=== PATIENT | male | born 1995 ===

== ENCOUNTER 2018-01-07 18:43 | Emergency (ER) | payer OTHER ==
--- NOTE | 2018-01-07 18:51 | ER Report ---
History and Physical Time Seen By MD: 18:50 HPI/ROS CHIEF COMPLAINT: Bilateral heel pain HISTORY OF PRESENT ILLNESS: 22-year-old male patient presents to emergency room with complaint of bilateral heel pain. Patient states that he spends most of yesterday drinking. He states that he got a bar and had a couple of beers. About 11 to 11:30 last night he was getting down of his [employer] roof. His body was climbing down using a trash can, however the patient felt that he would be able to jump without any difficulties, stating that was only 10-15 feet up. He squatted down and jumped off landing on both feet. He states that he did have pain at that time. He states it is significantly worse this morning. Is not been able to put weight on his left foot at all. He's been able to put some weight on the front of the right foot. He denies having numbness tingling. States he does have pain with moving his toes. Patient has been using crutches throughout the day. He denies any numbness tingling to the toes. REVIEW OF SYSTEMS: Respiratory: No cough, no dyspnea. Cardiovascular: No chest pain, no palpitations. Gastrointestinal: No vomiting, no abdominal pain. Musculoskeletal: As noted above Allergies: Coded Allergies: No Known Drug Allergies (Unverified , 01/07/18) Home Meds Active Scripts Hydrocodone Bit/Acetaminophen (HYDROCODON-ACETAMINOPHEN 5-325) 1 Each Tablet, 1 EACH PO Q4-6H Y for PAIN, #12 TAB Prov:ELLEN BARRON 01/07/18 Past Medical/Surgical History Patient denies any pertinent medical history. Patient has surgical history to both his upper and lower jaw. Reviewed Nurses Notes: Yes Constitutional Vital Sign - Last 24 Hours 01/07/18 01/07/18 01/07/18 01/07/18 18:49 18:58 19:13 19:28 Temp 99.7 Pulse 100 93 94 86 Resp 16 B/P (MAP) 155/87 Pulse Ox 93 92 93 93 01/07/18 01/07/18 01/07/18 01/07/18 19:43 19:58 20:03 20:18 Pulse 94 84 86 81 Pulse Ox 93 89 92 94 01/07/18 20:24 B/P (MAP) 146/81 (102) Physical Exam General Appearance: The patient is alert, has no immediate need for airway protection and no current signs of toxicity. ENT: Tympanic membranes are pearly-sewell, auditory canals are patent, mucous membranes are moist. Respiratory: Chest is non tender, lungs are clear to auscultation. Cardiac: regular rate and rhythm Gastrointestinal: Abdomen is soft and non tender, no masses, bowel sounds normal. Musculoskeletal: Neck: Neck is supple and non tender. Extremities have full range of motion and are non tender. Patient has tenderness to bilateral calcaneus, does have pain to the left foot just anterior to the calcaneus. There is no bruising or swelling noted. Skin: No rashes or lesions. DIFFERENTIAL DIAGNOSIS: After history and physical exam differential diagnosis was considered for fracture, contusion, sprain. Medical Decision Making EKG/Imaging Imaging ADDENDUM #1 On the lateral left foot calcaneus view there is a partial faint lucency underneath the linear sclerosis in the inferior calcaneus near the insertion of the plantar fascia. This appears to be prominent trabeculae. A definite fracture line is not seen. However then if symptoms persist suggest follow-up exam. I called report to ELLEN BARRON at 01/07/2018 8:17 PM. Report Dictated By: Bobby Kaur at 01/07/2018 8:14 PM Report E-Signed By: Bobby Kaur at 01/07/2018 8:17 PM ORIGINAL REPORT FOOT 3 VIEW RIGHT, FOOT 3 VIEW LEFT Indication: Fall on concrete. Bilateral foot pain more so in the heel. Left greater than right. Comparison: None Available Findings: 3 views of both feet. Both feet are symmetric. There is no indication of acute fracture or dislocation. Both calcanea show no discrete fracture and show symmetric appearance. Each inferior calcaneus show a faint linear sclerosis. No bony lesions, periosteal abnormality or degenerative changes. Soft tissues are unremarkable. IMPRESSION: 1. No discrete indication of acute fracture. If symptoms persist suggest follow- up exam to assess for an occult abnormality. Report Dictated By: Bobby Kaur at 01/07/2018 7:46 PM Report E-Signed By: Bobby Kaur at 01/07/2018 7:54 PM ED Course/Re-evaluation ED Course Patient was admitted to exam room, history and physical were obtained. Differential diagnoses were considered. On examination patient has tenderness to bilateral calcaneus. Initially there is no bruising noted, however I did note some bruising on the medial aspect of the left calcaneus. X-rays done of both heels. There were negative for fractures. I discussed findings with the radiologist. We will go ahead and discharge patient home at this time. We will have him wear a walking boot on the left heel, he is to ice both feet, he will be taking pain medication as needed for pain, as well as ibuprofen to help with pain. He is follow-up with his primary care provider in one week if pain persists. I would like a repeat x-ray if that occurs. Patient is use crutches long as he is having pain with ambulation. Patient verbalized understanding and agreement with plan. Decision to Disposition Date: Jan 07, 2018 Decision to Disposition Time: 20:23 Depart Departure Latest Vital Signs Vital Signs Date Time Temp Pulse Resp B/P (MAP) Pulse Ox O2 Delivery O2 Flow Rate FiO2 01/07/18 20:24 146/81 (102) 01/07/18 20:18 81 94 01/07/18 18:49 99.7 16 Impression: Primary Impression: Heel pain, bilateral Condition: Improved Disposition: HOME OR SELF-CARE New Scripts Hydrocodone Bit/Acetaminophen (HYDROCODON-ACETAMINOPHEN 5-325) 1 Each Tablet 1 EACH PO Q4-6H Y for PAIN, #12 TAB Prov: ELLEN BARRON 01/07/18 Patient Instructions: GENERAL ER DISCHARGE INSTRUCTIONS Additional Instructions: Limit activity by pain. Ice the feet 2-3 times a day for 10-15 minutes. Use crutches to help with ambulation. Follow up with your primary care provider in the next week, if there is no improvement in pain then get a repeat x-ray. Return to the ER if condition worsens. Wear the walking boot when you are active; you may take it off to shower, sleep. You may take Ibuprofen as needed for pain in addition to the pain medication. ELLEN BARRON Jan 07, 2018 18:51
--- NOTE | 2018-01-07 19:59 | RADIOLOGY IMAGING REPORT ---
FACILITY: [facility] - [place], [place] PATIENT NAME: Sanju Morel : 1995 MR: [id number] V: [id number] EXAM DATE: ORDERING PHYSICIAN: ELLEN BARRON TECHNOLOGIST: Location: [facility] - [place] Patient: Sanju Morel : 1995 Visit/Account:[id number] Date of Sevice: 01/07/2018 ADDENDUM #1 On the lateral left foot calcaneus view there is a partial faint lucency underneath the linear sclero sis in the inferior calcaneus near the insertion of the plantar fascia. This appears to be prominent trabeculae. A definite fracture line is not seen. However then if symptoms persist suggest follow-up exam. I called report to ELLEN BARRON at 01/07/2018 8:17 PM. Report Dictated By: Bobby Kaur at 01/07/2018 8:14 PM Report E-Signed By: Bobby Kaur at 01/07/2018 8:17 PM ORIGINAL REPORT FOOT 3 VIEW RIGHT, FOOT 3 VIEW LEFT Indication: Fall on concrete. Bilateral foot pain more so in the heel. Left greater than right. Comparison: None Available Findings: 3 views of both feet. Both feet are symmetric. There is no indication of acute fracture or dislocatio n. Both calcanea show no discrete fracture and show symmetric appearance. Each inferior calcaneus marychuy w a faint linear sclerosis. No bony lesions, periosteal abnormality or degenerative changes. Soft tis sues are unremarkable. IMPRESSION: 1. No discrete indication of acute fracture. If symptoms persist suggest follow-up exam to assess for an occult abnormality. Report Dictated By: Bobby Kaur at 01/07/2018 7:46 PM Report E-Signed By: Bobby Kaur at 01/07/2018 7:54 PM WSN:[id number]
--- NOTE | 2018-01-07 19:59 | RADIOLOGY IMAGING REPORT ---
FACILITY: [facility] PATIENT NAME: Sanju Morel : 1995 MR: [id number] V: [id number] EXAM DATE: ORDERING PHYSICIAN: ELLEN BARRON TECHNOLOGIST: Location: [facility] Patient: Sanju Morel : 1995 Visit/Account:[id number] Date of Sevice: 01/07/2018 ADDENDUM #1 On the lateral left foot calcaneus view there is a partial faint lucency underneath the linear sclero sis in the inferior calcaneus near the insertion of the plantar fascia. This appears to be prominent trabeculae. A definite fracture line is not seen. However then if symptoms persist suggest follow-up exam. I called report to ELLEN BARRON at 01/07/2018 8:17 PM. Report Dictated By: Bobby Kaur at 01/07/2018 8:14 PM Report E-Signed By: Bobby Kaur at 01/07/2018 8:17 PM ORIGINAL REPORT FOOT 3 VIEW RIGHT, FOOT 3 VIEW LEFT Indication: Fall on concrete. Bilateral foot pain more so in the heel. Left greater than right. Comparison: None Available Findings: 3 views of both feet. Both feet are symmetric. There is no indication of acute fracture or dislocatio n. Both calcanea show no discrete fracture and show symmetric appearance. Each inferior calcaneus marychuy w a faint linear sclerosis. No bony lesions, periosteal abnormality or degenerative changes. Soft tis sues are unremarkable. IMPRESSION: 1. No discrete indication of acute fracture. If symptoms persist suggest follow-up exam to assess for an occult abnormality. Report Dictated By: Bobby Kaur at 01/07/2018 7:46 PM Report E-Signed By: Bobby Kaur at 01/07/2018 7:54 PM WSN:[id number]
[2018-01-07] MEDS ORDERED: HYDR-385 PO (20:22)
[2018-01-07 20:24] VITALS: BP 146/81
[2018-01-07] MEDS ORDERED: ACET/HYDROC 5/325MG TH ER ONLY 2 TAB/BOTTLE PO ONE (20:25)
== END 2018-01-07 20:36 | disposition home or self-care (01) ==
LOC: ER 18:52
DX: M79.671 Pain in right foot (principal); M79.672 Pain in left foot
CPT/HCPCS: 99283